=== PATIENT | male | born 1940 | race Hispanic/Latino ===

== ENCOUNTER 2018-08-04 10:17 | Inpatient (IN) | payer MEDICARE ==
[~2018-08-04] VITALS: Ht 175.3 cm; Wt 133.0 kg
[~2018-08-04 10:17] MED LIST: FORTAMET500 MG PO; GLIPIZIDE ER2.5 MG PO; GLIPIZIDE XL10 MG PO; SIMVASTATIN10 MG PO; SIMVASTATIN5 MG PO
--- OUTSIDE RECORDS SUMMARY | 2018-08-04 10:23 | XMS REPORT ---
Author Author [facility] Address Unknown Phone Unavailable Care Team Providers Care Operator Helper Name Role Phone BRIAN ZAVALETA Unavailable Unavailable Problems This patient has no known problems. Allergies, Adverse Reactions, Alerts This patient has no known allergies or adverse reactions. Medications This patient has no known medications. Results Test Description Test Time Test Comments Text Results Atomic Results Result Comments POCT-GLUCOSE METER 2017-02-07 07:27:00 POC-GLUCOSE METER (BEAKER) (test evcy=6777) 296 mg/dL 70-110 TESTED AT [facility] [address] [place] [id number] BASIC METABOLIC [id number] 06:01:00* Test Item Value Reference Range Comments SODIUM (BEAKER) (test bxqr=841) 133 meq/L 136-145 POTASSIUM (BEAKER) (test pqpi=012) 3.8 meq/L 3.5-5.1 CHLORIDE (BEAKER) (test dxct=826) 100 meq/L 98-107 CO2 (BEAKER) (test nzfr=916) 24 meq/L 22-29 BLOOD UREA NITROGEN (BEAKER) (test muno=801) 20 mg/dL 7-21 CREATININE (BEAKER) (test lblb=049) 0.86 mg/dL 0.57-1.25 GLUCOSE RANDOM (BEAKER) (test lkjc=229) 296 mg/dL 70-105 CALCIUM (BEAKER) (test jmpt=015) 8.8 mg/dL 8.4-10.2 EGFR (BEAKER) (test qsxd=4722) mL/min/1.73 sq m INSUFFICIENT CLINICAL DATA TO CALCULATE ESTIMATED GFR. CBC (HEMOGRAM ONLY)2017-02-07 05:22:00* Test Item Value Reference Range Comments WHITE BLOOD CELL COUNT (BEAKER) (test rfop=290) 12.3 K/ L 3.5-10.5 RED BLOOD CELL COUNT (BEAKER) (test rvsm=036) 4.73 M/ L 4.63-6.08 HEMOGLOBIN (BEAKER) (test nmtd=407) 11.3 GM/DL 13.7-17.5 HEMATOCRIT (BEAKER) (test ltrp=630) 36.9 % 40.1-51.0 MEAN CORPUSCULAR VOLUME (BEAKER) (test ahln=890) 78.0 fL 79.0-92.2 MEAN CORPUSCULAR HEMOGLOBIN (BEAKER) (test pyba=679) 23.9 pg 25.7-32.2 MEAN CORPUSCULAR HEMOGLOBIN CONC (BEAKER) (test umci=122) 30.6 GM/DL 32.3-36.5 RED CELL DISTRIBUTION WIDTH (BEAKER) (test slne=015) 15.9 % 11.6-14.4 PLATELET COUNT (BEAKER) (test kmzi=189) 290 K/CU MM 150-450 MEAN PLATELET VOLUME (BEAKER) (test slcv=883) 9.3 fL 9.4-12.4 NUCLEATED RED BLOOD CELLS (BEAKER) (test kffv=180) 0 /100 WBC 0-0 POCT-GLUCOSE [id number] 23:13:00* Test Item Value Reference Range Comments POC-GLUCOSE METER ([facility]) (test zfnk=9302) 273 mg/dL 70-110 TESTED AT [address] [address] [id number] 18:58:00* Test Item Value Reference Range Comments ACTIVATED CLOTTING TIME (AKER) (test mrdx=183) 378 sec TESTED AT [address] [address] POCT-GLUCOSE [id number] 16:55:00* Test Item Value Reference Range Comments POC-GLUCOSE METER ([facility]) (test spyv=8157) 236 mg/dL 70-110 TESTED AT [address] [address] [id number] 14:56:00* Test Item Value Reference Range Comments PARTIAL THROMBOPLASTIN TIME (AKER) (test xhoq=939) 52.5 seconds 22.5-36.0 HEMOGLOBIN [id number] 13:43:00* Test Item Value Reference Range Comments HEMOGLOBIN A1C (BEAKER) (test kwhl=928) 10.0 % 4.3-6.1 POCT-GLUCOSE [id number] 11:19:00* Test Item Value Reference Range Comments POC-GLUCOSE METER ([facility]) (test xlcj=8592) 350 mg/dL 70-110 TESTED AT [facility] [address] [facility] [address] HEMOGLOBIN [id number] 09:47:00* Test Item Value Reference Range Comments HEMOGLOBIN A1C (BEAKER) (test dmeo=851) 9.4 % 4.3-6.1 TROPONIN [id number] 08:05:00* Test Item Value Reference Range Comments TROPONIN I (BEAKER) (test vgff=179) 2.66 ng/mL 0.00-0.03 Troponin I (TnI) levels must be interpreted in the context of the presenting sym ptoms and the clinical findings. Elevated TnI levels indicate myocardial damage, but are not specific for ischemic heart disease. Elevated TnI levels are seen in patients with other cardiac conditions (including myocarditis and congestive h eart failure), and slight TnI elevations occur in patients with other conditions , including sepsis, renal failure, acidosis, acute neurological disease, and per sistent tachyarrhythmia.CREATINE KINASE (CK), TOTAL AND [id number] 07:54:00* Test Item Value Reference Range Comments CREATINE KINASE TOTAL (BEAKER) (test qese=839) 119 U/L 29-200 CREATINE KINASE-MB (BEAKER) (test pvxl=372) 1.4 ng/mL 0.0-6.6 CREATINE KINASE-MB INDEX (BEAKER) (test lcda=459) 1.2 % CK-MB Reference Range:<6.7 Normal6.7-10.0 Borderline>10.0 AbnormalAPTT 2017-02-06 07:39:00* Test Item Value Reference Range Comments PARTIAL THROMBOPLASTIN TIME (BEAKER) (test gmdh=977) 47.4 seconds 22.5-36.0 B-TYPE NATRIURETIC FACTOR (BNP)2017-02-06 07:29:00* Test Item Value Reference Range Comments B-TYPE NATRIURETIC PEPTIDE (BEAKER) (test wucx=492) 26 pg/mL 0-100 RAD, CHEST, 1 VIEW, NON [id number] 07:28:00Reason for exam:->chest painShould this be performed at the bedside?->YesFINAL REPORT Chest, one view. HISTORY: Chest pain COMPARISON: None. DISCUSSION: Lungs are clear without focal consolidation. Moderate central venous congestion. Cardiomediastinal silhouette is mildly enlarged. No acute osseous abnormality. No pleural effusion or pneumothorax. Visualized portions of the upper abdomen are unremarkable. IMPRESSION: Moderate central venous congestion and mild enlargement of the cardiomediastinal silhouette. Signed: Mack Pickardeport Verified Date/Time: 02/06/2017 07:28:42 Reading Location: [facility] Diagnostic Imaging Reading Room - [place] [id number] -GLUCOSE [id number] 06:28:00* Test Item Value Reference Range Comments POC-GLUCOSE METER (BEAKER) (test pqow=8974) 213 mg/dL 70-110 TESTED AT [address] [address] TSH/FREE T4 IF [id number] 03:06:00* Test Item Value Reference Range Comments THYROID STIMULATING HORMONE (BEAKER) (test zbdw=922) 2.47 uIU/mL 0.35-4.94 TROPONIN [id number] 02:34:00* Test Item Value Reference Range Comments TROPONIN I (BEAKER) (test tcvm=309) 2.83 ng/mL 0.00-0.03 Troponin I (TnI) levels must be interpreted in the context of the presenting sym ptoms and the clinical findings. Elevated TnI levels indicate myocardial damage, but are not specific for ischemic heart disease. Elevated TnI levels are seen in patients with other cardiac conditions (including myocarditis and congestive h eart failure), and slight TnI elevations occur in patients with other conditions , including sepsis, renal failure, acidosis, acute neurological disease, and per sistent tachyarrhythmia.CREATINE KINASE (CK), TOTAL AND [id number] 02:32:00* Test Item Value Reference Range Comments CREATINE KINASE TOTAL (BEAKER) (test bwab=255) 125 U/L 29-200 CREATINE KINASE-MB (BEAKER) (test drdc=961) 1.5 ng/mL 0.0-6.6 CREATINE KINASE-MB INDEX (BEAKER) (test wqdt=495) 1.2 % CK-MB Reference Range:<6.7 Normal6.7-10.0 Borderline>10.0 Abnormal COMPREHENSIVE METABOLIC [id number] 02:28:00* Test Item Value Reference Range Comments TOTAL PROTEIN (BEAKER) (test tzro=664) 7.2 gm/dL 6.0-8.3 ALBUMIN (BEAKER) (test mbuw=7055) 3.7 g/dL 3.5-5.0 ALKALINE PHOSPHATASE (BEAKER) (test acct=047) 95 U/L 40-150 BILIRUBIN TOTAL (BEAKER) (test eymq=920) 0.4 mg/dL 0.2-1.2 SODIUM (BEAKER) (test ofch=443) 137 meq/L 136-145 POTASSIUM (BEAKER) (test oqbl=332) 4.2 meq/L 3.5-5.1 CHLORIDE (BEAKER) (test kyre=370) 102 meq/L 98-107 CO2 (BEAKER) (test lroa=029) 22 meq/L 22-29 BLOOD UREA NITROGEN (BEAKER) (test tvsv=460) 21 mg/dL 7-21 CREATININE (BEAKER) (test rssr=110) 1.02 mg/dL 0.57-1.25 GLUCOSE RANDOM (BEAKER) (test sxql=130) 250 mg/dL 70-105 CALCIUM (BEAKER) (test fxgj=818) 9.2 mg/dL 8.4-10.2 AST (SGOT) (BEAKER) (test lrsr=979) 59 U/L 5-34 ALT (SGPT) (BEAKER) (test zzac=568) 47 U/L 6-55 EGFR (BEAKER) (test rqvg=3900) mL/min/1.73 sq m INSUFFICIENT CLINICAL DATA TO CALCULATE ESTIMATED GFR. [id number] 02:26:00* Test Item Value Reference Range Comments PHOSPHORUS (BEAKER) (test lpsh=124) 3.3 mg/dL 2.3-4.7 [id number] 02:26:00* Test Item Value Reference Range Comments MAGNESIUM (BEAKER) (test jojs=908) 1.6 mg/dL 1.6-2.6 LIPID [id number] 02:26:00* Test Item Value Reference Range Comments TRIGLYCERIDES (BEAKER) (test hnrp=277) 113 mg/dL CHOLESTEROL (BEAKER) (test zdkl=616) 114 mg/dL HDL CHOLESTEROL (BEAKER) (test eywf=037) 35 mg/dL LDL CHOLESTEROL CALCULATED (BEAKER) (test krru=619) 56 mg/dL Triglyceride Reference Range: Low Risk <150 Borderline 150-199 High Risk 200-499 Very High Risk >=500Cholesterol Reference Range: Low Risk <200 Borderline 200-239 High Risk >240HDL Cholesterol Reference Range: Low Risk >=60 High Risk <40LDL Cholesterol Reference Range: Optimal <100 Near Optimal 100-129 Borderline 130-159 High 160-189 Very High >=190 APTT 2017-02-06 01:49:00* Test Item Value Reference Range Comments PARTIAL THROMBOPLASTIN TIME (BEAKER) (test lfgb=074) 37.0 seconds 22.5-36.0 PROTHROMBIN TIME/[id number] 01:48:00* Test Item Value Reference Range Comments PROTIME (BEAKER) (test xnql=080) 15.3 seconds 11.7-14.7 INR (BEAKER) (test qjfb=853) 1.2 <=5.9 RECOMMENDED COUMADIN/WARFARIN INR THERAPY RANGESSTANDARD DOSE: 2.0 - 3.0 Inclu siobhan: PROPHYLAXIS for venous thrombosis, systemic embolization; TREATMENT for lilia ous thrombosis and/or pulmonary embolus.HIGH RISK: Target INR is 2.5-3.5 for pat ients with mechanical heart valves.CBC W/PLT COUNT & AUTO [id number] 01:34:00* Test Item Value Reference Range Comments WHITE BLOOD CELL COUNT (BEAKER) (test uwzn=779) 12.2 K/ L 3.5-10.5 RED BLOOD CELL COUNT (BEAKER) (test xmor=246) 4.92 M/ L 4.63-6.08 HEMOGLOBIN (BEAKER) (test ymeb=530) 12.0 GM/DL 13.7-17.5 HEMATOCRIT (BEAKER) (test qsoo=698) 38.6 % 40.1-51.0 MEAN CORPUSCULAR VOLUME (BEAKER) (test sdmc=218) 78.5 fL 79.0-92.2 MEAN CORPUSCULAR HEMOGLOBIN (BEAKER) (test cldz=229) 24.4 pg 25.7-32.2 MEAN CORPUSCULAR HEMOGLOBIN CONC (BEAKER) (test akks=713) 31.1 GM/DL 32.3-36.5 RED CELL DISTRIBUTION WIDTH (BEAKER) (test onwv=878) 16.7 % 11.6-14.4 PLATELET COUNT (BEAKER) (test tljn=449) 306 K/CU MM 150-450 MEAN PLATELET VOLUME (BEAKER) (test elpa=177) 9.0 fL 9.4-12.4 NUCLEATED RED BLOOD CELLS (BEAKER) (test ynnj=324) 0 /100 WBC 0-0 NEUTROPHILS RELATIVE PERCENT (BEAKER) (test rrgq=296) 63 % LYMPHOCYTES RELATIVE PERCENT (BEAKER) (test xtzj=330) 24 % MONOCYTES RELATIVE PERCENT (BEAKER) (test bxkk=168) 8 % EOSINOPHILS RELATIVE PERCENT (BEAKER) (test qqyh=666) 3 % BASOPHILS RELATIVE PERCENT (BEAKER) (test esst=056) 1 % NEUTROPHILS ABSOLUTE COUNT (BEAKER) (test xick=129) 7.61 K/ L 1.78-5.38 LYMPHOCYTES ABSOLUTE COUNT (BEAKER) (test qqwz=560) 2.97 K/ L 1.32-3.57 MONOCYTES ABSOLUTE COUNT (BEAKER) (test rglw=519) 1.02 K/ L 0.30-0.82 EOSINOPHILS ABSOLUTE COUNT (BEAKER) (test hhpe=741) 0.36 K/ L 0.04-0.54 BASOPHILS ABSOLUTE COUNT (BEAKER) (test tlok=527) 0.06 K/ L 0.01-0.08 IMMATURE GRANULOCYTES-RELATIVE PERCENT (BEAKER) (test irma=1469) 1 % 0-1
--- OUTSIDE RECORDS SUMMARY | 2018-08-04 10:23 | XMS REPORT | Clinical Summary ---
Author Author [facility] Address Unknown Phone Unavailable Care Team Providers Care Pleating Supervisor Name Role Phone Sharpless PCP Allergies No Known Allergies Medications End Date Status Medication Sig Dispensed Refills Start Date Active insulin aspart Inject 60 0 protamine-insulin aspart Units (NOVOLOG MIX 70/30) 100 subcutaneousl unit/mL (70-30) injection y every morning. Active insulin aspart Inject 30 0 protamine-insulin aspart Units (NOVOLOG MIX 70/30) 100 subcutaneousl unit/mL (70-30) injection y daily with dinner. Active metFORMIN (GLUCOPHAGE) Take 1,000 mg 0 500 MG tablet by mouth 2 (two) times daily with breakfast and dinner. Active glipiZIDE (GLUCOTROL) 10 Take 10 mg by 0 MG tablet mouth. Active furosemide (LASIX) 40 MG Take 40 mg by 0 tablet mouth daily. Active ticagrelor (BRILINTA) 90 Take 1 tablet 60 tablet 11 mg Tab tablet (90 mg total) 7 by mouth every 12 (twelve) hours. 02/07/2018 aspirin 81 MG EC tablet Take 1 tablet 360 tablet 0 (81 mg total) 7 by mouth daily. 02/07/2018 atorvastatin (LIPITOR) 80 Take 0.5 180 tablet 1 MG tablet tablets (40 7 mg total) by mouth nightly. 02/07/2018 losartan (COZAAR) 25 MG Take 1 tablet 30 tablet 11 tablet (25 mg total) 7 by mouth daily. 02/07/2018 metoprolol (LOPRESSOR) 25 Take 0.5 60 tablet 11 MG tablet tablets (12.5 7 mg total) by mouth 2 (two) times daily. Active Problems Problem Noted Date Non-ST elevated myocardial infarction 02/06/2017 Immunizations Name Dates Previously Given Next Due Pneumococcal 02/06/2017 Polysaccharide (Pneumovax) Family History Medical History Relation Name Comments Coronary artery disease Father Diabetes Father Coronary artery disease Mother Relation Name Status Comments Father Mother Social History Date Tobacco Use Types Packs/Day Years Used Quit: 1967 Former Smoker Cigarettes Smokeless Tobacco: Never Used Alcohol Use Drinks/Week oz/Week Comments No 1 drink per month Sex Assigned at Date Recorded Not on file Industry Job Start Date Occupation Not on file Not on file Not on file Travel End Travel History Travel Start No recent travel history available. Last Filed Vital Signs Not on file Plan of Treatment Not on file Implants Device Identifier Shelf Expiration Date Model / Serial / Lot Implanted Type Area Manufactur er [id number] 05/23/2017 [id number] / / [id number] Synergy Stents-Cor N/A: Coronary [place] Implanted: Qty: 1 on 02/06/2017 by Gisell Ocasio MD Results Not on fileafter 08/03/2017 Insurance Payer Benefit Subscriber ID Type Phone Address Plan / Group MEDICARE MEDICARE A xxxxxxxxxx Medicare B MCR SUPPLEMENT/INDIVIDUAL AARP/UNITE xxxxxxxxxxx Medigap D HEALTHCARE Advance Directives Patient has advance care planning documents, and code status on file. For more i nformation, please contact: [facility] [address] [place] [address] Date Inactivated Comments Code Status Date Activated 02/07/2017 4:07 PM Full Code 02/06/2017 1:00 AM This code status was determined by: Patient
--- NOTE | 2018-08-04 10:39 | NUR ---
Dr. Argueta seeing pt at this time.
[2018-08-04] MEDS ORDERED: ACETAMINOPHEN 325 MG TAB PO STA (10:40)
[2018-08-04 11:21] LABS: BASOPHILS % 0.2 % (0.0-1.0); EOSINOPHILS # (AUTO) 0.1 (0.0-0.4); EOSINOPHILS % 0.7 % (0.0-6.0); HEMATOCRIT 40.9 % (38.2-49.6); HEMOGLOBIN 12.1 g/dL (14.0-18.0); LYMPHOCYTES # (AUTO) 1.6 (1.0-3.2); LYMPHOCYTES % 9.4 % (18.0-39.1); MEAN CORPUSCULAR HEMOGLOBIN 21.5 pg (28-32); MEAN CORPUSCULAR HGB CONC 29.6 g/dL (31-35); MEAN CORPUSCULAR VOLUME 72.6 fL (81-99); MONOCYTES # (AUTO) 1.4 (0.2-0.8); MONOCYTES % 8.6 % (4.4-11.3); NEUTROPHILS # (AUTO) 13.3 (2.1-6.9); NEUTROPHILS % 79.8 % (38.7-80.0); PLATELET COUNT 494 x10e3/uL (140-360); RED BLOOD COUNT 5.63 x10e6/uL (4.3-5.7); RED CELL DISTRIBUTION WIDTH 20.2 % (11.7-14.4)
[2018-08-04 11:37] LABS: ALANINE AMINOTRANSFERASE 39 IU/L (0-55); ALBUMIN 2.7 g/dL (3.5-5.0); ALBUMIN/GLOBULIN RATIO 0.5 (0.8-2.0); ALKALINE PHOSPHATASE 95 IU/L (40-150); ANION GAP 16.1 mmol/L (8-16); BLOOD UREA NITROGEN 12 mg/dL (7-26); BUN/CREATININE RATIO 10 (6-25); CALCIUM 9.2 mg/dL (8.4-10.2); CARBON DIOXIDE 24 mmol/L (22-29); CHLORIDE 96 mmol/L (98-107); CREATININE, SERUM 1.15 mg/dL (0.72-1.25); EST GLOMERULAR FILTRATION RATE > 60 ML/MIN (60-); GLUCOSE 170 mg/dL (74-118); POTASSIUM 4.1 mmol/L (3.5-5.1); SODIUM 132 mmol/L (136-145)
[2018-08-04] MEDS ORDERED: SODIUM CHLORIDE 0.9% 1000ML 1,000 ML IV SCH (11:45)
--- NOTE | 2018-08-04 12:33 | Diagnostic Imaging Report ---
EXAM: CHEST 2 VIEWS, PA and lateral DATE: 08/04/2018 Time stamp on exam: 11:10 AM INDICATION: Possible pneumonia COMPARISON: None FINDINGS: LINES/TUBES: None LUNGS: Mild pulmonary vascular congestion. PLEURA: No effusions or pneumothorax. HEART AND MEDIASTINUM: Normal size and contour. BONES AND SOFT TISSUES: No acute findings. IMPRESSION: Mild pulmonary vascular congestion. Signed by: Dr. Tristin Younger DO on 08/04/2018 12:30 PM
[2018-08-04 13:39] LABS: CREATINE KINASE 102 IU/L (30-200)
[2018-08-04 13:58] LABS: CLARITY,URINE CLOUDY (CLEAR); COLOR,URINE STRAW (YELLOW); KETONES,URINE TRACE (NEGATIVE); LEUKOCYTE ESTERASE ,URINE TRACE (NEGATIVE); NITRITE,URINE NEGATIVE (NEGATIVE); PROTEIN,URINE DIPSTICK 1+ (NEGATIVE)
[2018-08-04 13:59] LABS: BILIRUBIN,URINE 2+ (NEGATIVE); URINE UROBILINOGEN 1 mg/dL (0.2 - 1)
[2018-08-04] MEDS ORDERED: AZITHROMYCIN 500MG/NS 250 ML 250 ML IV SCH (14:00)
[2018-08-04] MEDS ORDERED: CEFTRIAXONE SOD 1 GM/NS 50 ML 50 ML IV SCH (14:00)
[2018-08-04 14:09] LABS: AMORPHOUS SEDIMENT,URINE MANY (FEW); BACTERIA,URINE MANY /HPF
--- OUTSIDE RECORDS SUMMARY | 2018-08-04 15:19 | XMS REPORT | Clinical Summary ---
Author Author [facility] Address Unknown Phone Unavailable Care Team Providers Care Home Visits Nurse Name Role Phone Sharpless PCP Allergies No [...] / Lot Implanted Type Area Manufactur er [id number] 05/23/2017 [id number] / / [id number] Synergy Stents-Cor N/A: Coronary [place] Implanted: Qty: 1 on 02/06/2017 by Gisell Ocasio MD Results Not on fileafter 08/03/2017 Insurance Payer Benefit Subscriber ID Type Phone Address Plan / Group MEDICARE MEDICARE A xxxxxxxxxx Medicare B MCR SUPPLEMENT/INDIVIDUAL AARP/UNITE xxxxxxxxxxx Medigap D HEALTHCARE Advance Directives Patient has advance care planning documents, and code status on file. For more i nformation, please contact: [facility] [address] [place] [address] Date Inactivated Comments Code Status Date Activated 02/07/2017 4:07 PM Full Code 02/06/2017 1:00 AM This code status was determined by: Patient
[2018-08-04] MEDS ORDERED: ALBUTEROL SULF 0.083% NEB SOLN 3 ML NEB NEB SCH (15:20)
[2018-08-04] MEDS ORDERED: NON-FORMULARY MEDICATION (Glipizide (Glipizide Xl) 10 MG) PO SCH (15:30)
[2018-08-04] MEDS ORDERED: HYDROCORTISONE SOD SUCCINATE 100 MG VIAL IV ONE ×2 (15:45→18:00)
[2018-08-04 16:15] VITALS: BP 134/78
[2018-08-04 16:34] VITALS: BP 134/78
[2018-08-04] MEDS ORDERED: NOVOLOG MI100 UNIT/1 SQ ×2 (16:41→16:43)
--- NOTE | 2018-08-04 16:49 | Diagnostic Imaging Report ---
TECHNIQUE: CT scan of the chest WITHOUT intravenous contrast, using standard protocol. The chest was scanned utilizing a multidetector helical scanner from the apex to the level of the adrenal glands. 100 mL Isovue-370 IV contrast. Coronal and sagittal reformations were obtained. Total DLP: 625 mGy-cm COMPARISON: None INDICATION: Cough, congestion DISCUSSION: Lines/tubes: None. Lungs and Airways: Focal wedge-shaped area of tree-in-bud nodularity in the posterior, inferior right upper lobe with a similar abnormality in the posterior bilateral lower lobes. Minimal scattered areas of endobronchial contents of the lower lobes Multiple pulmonary micronodules measuring less than 7 mm scattered in the right upper and left lower lobes. Pleura: The pleural spaces are clear. Heart and mediastinum: The thyroid gland is normal. No significant mediastinal, hilar or axillary lymphadenopathy is seen. The heart and pericardium are within normal limits. Soft tissues: Normal. Abdomen: 17 mm left adrenal nodule measuring fluid density consistent with adenoma. The remainder of the upper abdominal contents are unremarkable. Bones: No acute bony abnormality. IMPRESSION: Minor patchy opacification and tree-in-bud abnormality in the posterior right upper and bilateral lower lobes may represent a developing infectious/inflammatory process, aspiration is a consideration. Follow-up is recommended after treatment to confirm resolution. Multiple pulmonary micronodules measuring up roughly 6 mm or less, these can be followed up as above. 17 mm left adrenal nodule measuring low density most consistent with an incidental adrenal adenoma adenoma. Signed by: Bo Gallegos MD on 08/04/2018 4:45 PM
--- NOTE | 2018-08-04 16:57 | History and Physical ---
CHIEF COMPLAINT: Congestion and cough. HISTORY OF PRESENT ILLNESS: The patient is a 78-year-old man. He has a history of coronary artery disease and a prior stent placement. He has a chronic cough. Over the past 1-2 weeks, he has had increased congestion and cough. He has noticed some dyspnea. He also had fever yesterday and today. He does not complain of any chest pain. He is not having any abdominal pain. He has no nausea or vomiting. PAST SURGICAL HISTORY: Status post coronary artery stent. PAST MEDICAL HISTORY: 1. Diabetes. 2. Hypercholesterolemia. 3. The patient denies any prior history of asthma or COPD. SOCIAL HISTORY: The patient was a smoker, but quit in 1967. He is not an active drinker. He lives at home with his who has also been sick. FAMILY HISTORY: Family history is noncontributory. ALLERGIES: THERE ARE NO KNOWN DRUG ALLERGIES. REVIEW OF SYSTEMS: The patient is febrile for the past 1-2 days. He has no headache. He has no sore throat. He is not complaining of any swollen glands. He has no chest pain. He does note some cough and congestion. He is not complaining of any chest pain. He has no nausea or vomiting. He has no abdominal pain. He does have some mild leg swelling. He has no focal neurological complaints. OBJECTIVE: VITAL SIGNS: The patient is afebrile now, but had a temperature of 100.8. The blood pressure is 118/76 and the saturation is 98%. HEENT: Shows no facial swelling or erythema. The nasal mucosa is normal. The oropharynx is normal. LYMPHATIC: Shows no submandibular, cervical or supraclavicular adenopathy. CARDIAC: Reveals a regular rate and rhythm with a normal S1 and S2. There are no murmurs or rubs. LUNGS: Auscultation of lungs reveals rhonchorous breath sounds bilaterally. There is no wheezing. ABDOMEN: Soft, nontender. There is no rebound or guarding. EXTREMITIES: Show no leg edema or calf tenderness. There is no cyanosis or clubbing. SKIN: Shows no rashes. NEUROLOGICAL: Shows no focal abnormalities. RADIOGRAPHIC DATA: Chest x-ray shows some mild venous congestion. LABORATORY DATA: The BUN to creatinine ratio is 12:1.15 and the lactic acid is 28.1. The white blood cell count is 16.6 and the hemoglobin is 12.1. The platelet count is 494. IMPRESSION: 1. Sepsis with unclear source. 2. Chronic bronchitis with acute exacerbation. 3. Diabetes mellitus. 4. Hypertension. PLAN: 1. The patient will receive IV antibiotics along with intravenous fluids. 2. CT scan of the chest. 3. Panculture patient and await for results. 4. Continue home diabetic regimen and home antihypertensive regimen. 5. Echocardiogram. Edgardo Rizo MD [facility]/MODL /[id number]
[2018-08-04 17:00] VITALS: BP 134/78
[2018-08-04] MEDS ORDERED: NON-FORMULARY MEDICATION (Insuln Asp Prt/Insulin Aspart (Novolog Mix 70-30 Flexpen Syrn) 3 SQ SCH (17:00)
[2018-08-04] MEDS ORDERED: GLIPIZIDE 5 MG TAB PO SCH (17:00)
[2018-08-04] MEDS: FLUTICASONE PROPIONATE NASAL SPRAY NS SCH (17:00)
[2018-08-04] MEDS ORDERED: INSULIN ASPART 70/30 100 UNITS/ML VIAL SC SCH (17:00)
[2018-08-04] MEDS: SODIUM CHLORIDE 0.9% 1000ML 1,000 ML IV SCH (17:13)
[2018-08-04 20:00] VITALS: BP 129/72
[2018-08-04] MEDS ORDERED: DEXTROSE 50% SYRINGE 50 ML IV PRN (20:30)
[2018-08-04 21:00] VITALS: BP 129/72
[2018-08-04] MEDS ORDERED: GLIPIZIDE 5 MG TAB ER PO SCH (21:00)
[2018-08-04] MEDS ORDERED: IOPAMIDOL 370 MG/ML 200 ML INFUS..BTL INJ ONE (22:26)
[2018-08-04] MEDS ORDERED: SODIUM CHLORIDE 0.9% 50ML 50 ML ONE (22:26)
[2018-08-04] MEDS: SIMVASTATIN 20 MG TAB PO SCH (22:37)
[2018-08-04] MEDS: INSULIN REGULAR, HUMAN 100 UNIT/1 ML 3ML VIAL SQ SCH (22:37)
[2018-08-05] VITALS (9 sets, daily range): BP systolic 132–158; BP diastolic 72–98
[2018-08-05] MEDS: ZOLPIDEM TARTRATE 5 MG TAB PO PRN ×2 (01:08→21:43)
[2018-08-05] MEDS: ALBUTEROL SULF 0.083% NEB SOLN 3 ML NEB NEB PRN ×2 (01:17→13:30)
[2018-08-05] MEDS: CEFTRIAXONE SOD 1 GM/NS 50 ML 50 ML IV SCH ×2 (01:29→15:24)
[2018-08-05] MEDS: SODIUM CHLORIDE 0.9% 1000ML 1,000 ML IV SCH (01:29)
[2018-08-05 05:00] LABS: BASOPHILS # (AUTO) 0.1 (0.0-0.1); BASOPHILS % 0.3 % (0.0-1.0); EOSINOPHILS # (AUTO) 0.1 (0.0-0.4); EOSINOPHILS % 0.7 % (0.0-6.0); HEMATOCRIT 34.1 % (38.2-49.6); HEMOGLOBIN 10.2 g/dL (14.0-18.0); LYMPHOCYTES # (AUTO) 2.2 (1.0-3.2); MEAN CORPUSCULAR HEMOGLOBIN 21.6 pg (28-32); MEAN CORPUSCULAR HGB CONC 29.9 g/dL (31-35); MEAN CORPUSCULAR VOLUME 72.2 fL (81-99); MONOCYTES # (AUTO) 1.5 (0.2-0.8); MONOCYTES % 9.8 % (4.4-11.3); NEUTROPHILS # (AUTO) 10.8 (2.1-6.9); NEUTROPHILS % 73.1 % (38.7-80.0); PLATELET COUNT 405 x10e3/uL (140-360); RED BLOOD COUNT 4.72 x10e6/uL (4.3-5.7); RED CELL DISTRIBUTION WIDTH 19.2 % (11.7-14.4)
[2018-08-05 05:27] LABS: ALANINE AMINOTRANSFERASE 29 IU/L (0-55); ALBUMIN 2.2 g/dL (3.5-5.0); ALBUMIN/GLOBULIN RATIO 0.4 (0.8-2.0); ALKALINE PHOSPHATASE 82 IU/L (40-150); ANION GAP 11.8 mmol/L (8-16); BLOOD UREA NITROGEN 9 mg/dL (7-26); BUN/CREATININE RATIO 11 (6-25); CALCIUM 8.6 mg/dL (8.4-10.2); CARBON DIOXIDE 23 mmol/L (22-29); CHLORIDE 103 mmol/L (98-107); EST GLOMERULAR FILTRATION RATE > 60 ML/MIN (60-); GLUCOSE 129 mg/dL (74-118); POTASSIUM 3.8 mmol/L (3.5-5.1); SODIUM 134 mmol/L (136-145)
--- NOTE | 2018-08-05 07:19 | NUR ---
Report given to AM nurse,walking round done.
[2018-08-05] MEDS: INSULIN REGULAR, HUMAN 100 UNIT/1 ML 3ML VIAL SQ SCH ×4 (07:30→21:42)
[2018-08-05] MEDS ORDERED: NON-FORMULARY MEDICATION (Insuln Asp Prt/Insulin Aspart (Novolog Mix 70-30 Flexpen Syrn) 6 SQ SCH (09:00)
[2018-08-05] MEDS ORDERED: GLIPIZIDE 5 MG TAB ER PO SCH (09:00)
[2018-08-05] MEDS: FLUTICASONE PROPIONATE NASAL SPRAY NS SCH ×2 (09:00→17:03)
[2018-08-05] MEDS ORDERED: INSULIN ASPART 70/30 100 UNITS/ML VIAL SC SCH ×3 (09:00)
[2018-08-05] MEDS: GLIPIZIDE 5 MG TAB PO SCH ×2 (09:43→17:03)
[2018-08-05] MEDS ORDERED: ACETAMINOPHEN 325 MG TAB PO PRN (09:45)
[2018-08-05] MEDS: ACETAMINOPHEN 325 MG TAB PO PRN (10:00)
--- NOTE | 2018-08-05 11:01 | Progress Note ---
DATE: Pulmonary Critical Care Progress Note SUBJECTIVE: The patient feels better. He has less congestion and less cough. OBJECTIVE: VITAL SIGNS: The blood pressure is 141/72 and saturation is 99%. The pulse is 84 and the respiratory rate is 21. HEENT: Shows no facial swelling or erythema. CARDIAC: Reveals a regular rate and rhythm with a normal S1 and S2. There are no murmurs or rubs. RESPIRATORY: Auscultation of lungs reveal rhonchorous breath sounds bilaterally. There is no wheezing. ABDOMEN: Soft and nontender. There is no rebound or guarding. EXTREMITIES: Show no leg edema or calf tenderness. LABORATORY DATA: The BUN to creatinine ratio is normal. The sodium is 134. The albumin is 2.2. White blood cell count is 14.8, hemoglobin is 10.2, and platelet count is 405. RADIOGRAPHIC DATA: CT scan of the chest shows patchy infiltrates in the right upper lobe and lower lobes bilaterally. IMPRESSION: 1. Community-acquired pneumonia with sepsis, present on admission. 2. Acute kidney injury. 3. Hyponatremia. 4. Diabetes mellitus. 5. Hypertension. PLAN: 1. The patient will continue to receive IV antibiotics. 2. Await final culture results. 3. Repeat CBC and chemistries in the morning. Edgardo Rizo MD [facility]/MODL /[id number]
[2018-08-05] MEDS: AZITHROMYCIN 500MG/NS 250 ML 250 ML IV SCH (13:34)
--- NOTE | 2018-08-05 16:41 | NUR ---
CASE MANAGEMENT INITIAL ASSESSMENT Wire Stitcher Operator to bedside to discuss plan of care with patient/family. CM/SW role and care transitions discussed. Anticipated discharge plan discussed along with duration of care. CM/SW discussed patients right to make decisions in care. CM/SW work hours given. Patient lives: Admit/Transfer: ER Hospital/ER visits since last admit:NONE POA/Emergency contact: BISHOP CRANE [phone] Current/Previous Home Health: NONE PCP/Follow-up Care: DR SHERIF YIN Current/Previous DME: GLUCOMETER; PT IS WORKING WITH PCP TO GET PAPERWORK COMPLETE FOR ELECTRIC SCOOOTER Medications (referring to index hospitalization or the first time you were in the hospital) a. Were changes made in your medications when you were in the hospital on [date of index hospitalization]? Yes No Not sure Explain: Note: If no or not sure, please skip to question d b. Did you understand the changes? Yes No Explain: c. Were you able to obtain your new medications right away? Yes No n/a SNF only Explain: d. Were you able to take your medications like the doctor wanted you to? TAKING MEDS AND INSULIN PER PCP DR YIN e. Did the hospital give you an accurate, easy to understand list of medications when you left? N/A Scale of 1-10 how comfortable does patient feel with disease management in outpatient settin Other Services: NONE Employment Status: RETIRED Areas of Concerns: GETTING SCOOTER BECAUSE HE TIRES QUICKLY WHILE WALKING Referral Needs: NONE Education Needs: REGARDING DC MEDS IMM/MENDEZ given and signed (if applicable): IMM ON ADMIT Goal for discharge:DC HOME WITH SOON POSSIBLE CM/SW left business card at the bedside with contact information. Name and number was also written on the patients whiteboard. Patient verbalized understanding of discussion. CM will follow-up with ongoing discharge and transition of care needs.
[2018-08-05] MEDS: INSULIN ASPART 70/30 100 UNITS/ML VIAL SC SCH (17:41)
[2018-08-05] MEDS: SIMVASTATIN 20 MG TAB PO SCH (21:42)
[2018-08-06] VITALS (8 sets, daily range): BP systolic 137–156; BP diastolic 71–86
[2018-08-06] MEDS: CEFTRIAXONE SOD 1 GM/NS 50 ML 50 ML IV SCH ×2 (02:07→14:00)
[2018-08-06 05:44] LABS: BASOPHILS # (AUTO) 0.1 (0.0-0.1); BASOPHILS % 0.4 % (0.0-1.0); EOSINOPHILS # (AUTO) 0.5 (0.0-0.4); EOSINOPHILS % 3.4 % (0.0-6.0); LYMPHOCYTES # (AUTO) 2.1 (1.0-3.2); LYMPHOCYTES % 15.6 % (18.0-39.1); MEAN CORPUSCULAR HEMOGLOBIN 21.5 pg (28-32); MEAN CORPUSCULAR HGB CONC 29.4 g/dL (31-35); MONOCYTES # (AUTO) 1.3 (0.2-0.8); MONOCYTES % 9.8 % (4.4-11.3); NEUTROPHILS # (AUTO) 9.2 (2.1-6.9); NEUTROPHILS % 69.7 % (38.7-80.0); PLATELET COUNT 438 x10e3/uL (140-360); RED BLOOD COUNT 4.66 x10e6/uL (4.3-5.7); RED CELL DISTRIBUTION WIDTH 19.5 % (11.7-14.4)
[2018-08-06 06:08] LABS: ALANINE AMINOTRANSFERASE 33 IU/L (0-55); ALBUMIN 2.3 g/dL (3.5-5.0); ALBUMIN/GLOBULIN RATIO 0.5 (0.8-2.0); ALKALINE PHOSPHATASE 91 IU/L (40-150); ANION GAP 10.9 mmol/L (8-16); BLOOD UREA NITROGEN 8 mg/dL (7-26); BUN/CREATININE RATIO 10 (6-25); CALCIUM 8.9 mg/dL (8.4-10.2); CARBON DIOXIDE 25 mmol/L (22-29); CHLORIDE 100 mmol/L (98-107); CREATININE, SERUM 0.81 mg/dL (0.72-1.25); EST GLOMERULAR FILTRATION RATE > 60 ML/MIN (60-); GLUCOSE 128 mg/dL (74-118); POTASSIUM 3.9 mmol/L (3.5-5.1); SODIUM 132 mmol/L (136-145)
--- NOTE | 2018-08-06 07:05 | NUR ---
Report given to oncoming nurse,walking round done.
--- NOTE | 2018-08-06 07:53 | NUR ---
MD Taylor JOHNSON INTO SEE PT, DISCUSSED POC
[2018-08-06] MEDS: ACETAMINOPHEN 325 MG TAB PO PRN (08:15)
[2018-08-06] MEDS ORDERED: CLONIDINE HCL 0.2 MG TAB PO PRN (08:15)
[2018-08-06] MEDS: GLIPIZIDE 5 MG TAB PO SCH ×2 (08:15→16:52)
[2018-08-06] MEDS: INSULIN ASPART 70/30 100 UNITS/ML VIAL SC SCH ×2 (08:30→16:52)
[2018-08-06] MEDS: INSULIN REGULAR, HUMAN 100 UNIT/1 ML 3ML VIAL SQ SCH ×4 (08:30→21:48)
[2018-08-06] MEDS: FLUTICASONE PROPIONATE NASAL SPRAY NS SCH ×3 (09:00→21:48)
--- NOTE | 2018-08-06 10:06 | NUR ---
PT RESTING WITH EYES CLOSED, RR NONLABORED, CALL LIGHT WITHIN REACH
--- NOTE | 2018-08-06 10:41 | Progress Note ---
DATE: 08/06/2018 Pulmonary Critical Care Progress Note SUBJECTIVE: The patient feels better, but still has some cough. He still has some congestion. OBJECTIVE: VITAL SIGNS: His T-max last night was 99.7. He remains on 4 L of oxygen, but is 100% saturated. HEENT: Shows no facial swelling or erythema. The oropharynx is normal. LYMPHATIC: Shows no submandibular, cervical, or supraclavicular adenopathy. CARDIAC: Reveals a regular rate and rhythm with a normal S1 and S2. There are no murmurs or rubs. LUNGS: Auscultation of lungs reveals clear breath sounds bilaterally. There is no wheezing. ABDOMEN: Soft and nontender. There is no rebound or guarding. EXTREMITIES: Show no leg edema or calf tenderness. LABORATORY DATA: White blood cell count is 13.2 and hemoglobin is 10. Sodium is 132. Blood sugars are 162 and 164. IMPRESSION: 1. Community-acquired pneumonia with sepsis present on admission. 2. Acute kidney injury. 3. Diabetes mellitus. 4. Hypertension. 5. Headache. PLAN: 1. Continue IV antibiotics. 2. Wean oxygen. 3. Continue to monitor blood sugars and adjust insulin. Edgardo Rizo MD [facility] /[id number]
--- NOTE | 2018-08-06 12:30 | NUR ---
PT EDUCATED ON NEED FOR SPUTUM SAMPLE, STATES "ALREADY GAVE ONE FEW DAYS AGO AND NOBODY PICKED IT UP", ASSURED PT THAT WHEN HE GIVES SAMPLE, NURSE WILL COLLECT IT FOR HIM, PT VERBALIZED UNDERSTANDING, CUP AT BEDSIDE
--- NOTE | 2018-08-06 13:50 | NUR ---
EDUCATED ABOUT IMM, SIGNED, FILED IN CHART, WITH COPY LEFT WITH FAMILY AT BEDSIDE.
[2018-08-06] MEDS: AZITHROMYCIN 500MG/NS 250 ML 250 ML IV SCH (14:30)
--- NOTE | 2018-08-06 15:00 | NUR ---
IV TO LEFT AC NOTED TO BE RED AND "SORE TO TOUCH", IV REMOVED, NEW 20G TO RFA BY CHARGE NURSE, PT TOLERATED WELL
--- NOTE | 2018-08-06 16:30 | NUR ---
WITH STANDBY ASSIST, PT OOB TO BR, SOME SHORTNESS OF BREATH UPON RETURNING TO BED, PT SATS 100%, NO DISTRESS NOTED, PT BETTER AFTER SITTING, CALL LIGHT WITHIN REACH
--- NOTE | 2018-08-06 18:32 | NUR ---
NO CHANGE IN CONDITION, CALL LIGHT WITHIN REACH
[2018-08-06] MEDS: GUAIFENESIN/CODEINE 10 ML CUP PO PRN (19:25)
--- NOTE | 2018-08-06 19:45 | NUR ---
NOTIFIED PATIENT AND THAT PATIENT WILL BE TRANSFERRED TO 205.
--- NOTE | 2018-08-06 20:40 | NUR ---
received patient from [facility]. Patient is AAOx3. Resp even and unlabored with O2 at 3L. No acute distress noted. Patient denies of any pain or discomfort at this time. Family at bed side. continue to monitor closely
[2018-08-06] MEDS: SIMVASTATIN 20 MG TAB PO SCH (21:48)
[2018-08-07] VITALS (8 sets, daily range): BP systolic 125–150; BP diastolic 66–75
[2018-08-07] MEDS: CEFTRIAXONE SOD 1 GM/NS 50 ML 50 ML IV SCH ×2 (02:30→13:58)
[2018-08-07] MEDS ORDERED: SODIUM CHLORIDE 0.9% 250ML 250 ML ONE (02:31)
[2018-08-07] MEDS: GUAIFENESIN/CODEINE 10 ML CUP PO PRN ×3 (05:53→21:10)
[2018-08-07] MEDS: GLIPIZIDE 5 MG TAB PO SCH ×2 (08:12→16:50)
[2018-08-07] MEDS: FLUTICASONE PROPIONATE NASAL SPRAY NS SCH ×2 (08:13→20:56)
[2018-08-07] MEDS: INSULIN ASPART 70/30 100 UNITS/ML VIAL SC SCH ×2 (08:14→16:52)
[2018-08-07] MEDS: INSULIN REGULAR, HUMAN 100 UNIT/1 ML 3ML VIAL SQ SCH ×4 (08:17→20:56)
--- NOTE | 2018-08-07 08:43 | NUR ---
The pt. returned from radiology to the unit post chest films. He denies pain or discomfort at this time and is resting quietly on the bedside.
--- NOTE | 2018-08-07 08:46 | Diagnostic Imaging Report ---
EXAMINATION: PA and lateral views of the chest. COMPARISON: CT chest 08/04/2018 CLINICAL HISTORY: Pneumonia DISCUSSION: The lungs are well-inflated. Patchy reticular and nodular opacities in the right upper and bilateral lower lobes seen to better advantage on comparison CT. No pleural effusion or pneumothorax. Tortuous thoracic aorta with atherosclerotic calcification. No overt pulmonary edema. No acute osseous abnormality. IMPRESSION: Patchy multifocal reticular and nodular opacities seen to better advantage on comparison CT 08/04/2018. No new consolidations. Signed by: Dr. Nathan Flower M.D. on 08/07/2018 8:42 AM
[2018-08-07 09:29] LABS: BASOPHILS # (AUTO) 0.1 (0.0-0.1); BASOPHILS % 0.4 % (0.0-1.0); EOSINOPHILS # (AUTO) 0.4 (0.0-0.4); EOSINOPHILS % 3.6 % (0.0-6.0); HEMATOCRIT 32.7 % (38.2-49.6); HEMOGLOBIN 9.7 g/dL (14.0-18.0); LYMPHOCYTES # (AUTO) 2.1 (1.0-3.2); LYMPHOCYTES % 17.8 % (18.0-39.1); MEAN CORPUSCULAR HEMOGLOBIN 21.7 pg (28-32); MEAN CORPUSCULAR HGB CONC 29.7 g/dL (31-35); MONOCYTES % 8.6 % (4.4-11.3); NEUTROPHILS # (AUTO) 8.2 (2.1-6.9); NEUTROPHILS % 68.3 % (38.7-80.0); PLATELET COUNT 422 x10e3/uL (140-360); RED BLOOD COUNT 4.48 x10e6/uL (4.3-5.7); RED CELL DISTRIBUTION WIDTH 19.2 % (11.7-14.4)
--- NOTE | 2018-08-07 09:35 | Progress Note ---
DATE: 08/07/2018 Pulmonary Critical Care Progress Note SUBJECTIVE: The patient is still requiring oxygen at 3 L. He has no fever. He has less congestion. He has less cough. PHYSICAL EXAMINATION: VITAL SIGNS: The blood pressure is 131/67 and the saturation is 97%. HEENT: Shows no facial swelling or erythema. The nasal mucosa is normal. The oropharynx is normal. LYMPHATIC: Shows no submandibular, cervical, or supraclavicular adenopathy. NECK: Shows no JVD or thyromegaly. There is no nuchal rigidity. CARDIAC: Reveals a regular rate and rhythm with a normal S1 and S2. There are no murmurs or rubs. LUNGS: Auscultation of lungs reveals clear breath sounds bilaterally. There is no wheezing. ABDOMEN: Soft nontender. IMPRESSION: 1. Community-acquired pneumonia with sepsis, present on admission. 2. Acute kidney injury. 3. Diabetes mellitus. 4. Hypertension. PLAN: 1. Wean oxygen. 2. Repeat PA and lateral chest x-ray. 3. Continue antibiotics. 4. Continue to monitor blood sugars and adjust insulin. Edgardo Rizo MD [facility] /[id number]
[2018-08-07 09:55] LABS: ALANINE AMINOTRANSFERASE 33 IU/L (0-55); ALBUMIN 2.1 g/dL (3.5-5.0); ALBUMIN/GLOBULIN RATIO 0.4 (0.8-2.0); ALKALINE PHOSPHATASE 87 IU/L (40-150); ANION GAP 9.9 mmol/L (8-16); BLOOD UREA NITROGEN 8 mg/dL (7-26); BUN/CREATININE RATIO 9 (6-25); CALCIUM 8.7 mg/dL (8.4-10.2); CARBON DIOXIDE 27 mmol/L (22-29); CHLORIDE 96 mmol/L (98-107); CREATININE, SERUM 0.88 mg/dL (0.72-1.25); EST GLOMERULAR FILTRATION RATE > 60 ML/MIN (60-); GLUCOSE 282 mg/dL (74-118); POTASSIUM 3.9 mmol/L (3.5-5.1); SODIUM 129 mmol/L (136-145)
[2018-08-07] MEDS: AZITHROMYCIN 500MG/NS 250 ML 250 ML IV SCH (13:58)
[2018-08-07] MEDS: SIMVASTATIN 20 MG TAB PO SCH (20:56)
[2018-08-08 00:26] VITALS: BP 150/74
[2018-08-08] MEDS: CEFTRIAXONE SOD 1 GM/NS 50 ML 50 ML IV SCH (02:24)
[2018-08-08 05:54] VITALS: BP 141/69
[2018-08-08 08:04] VITALS: BP 146/71
[2018-08-08 08:27] VITALS: BP 146/71
[2018-08-08] MEDS: GLIPIZIDE 5 MG TAB PO SCH (08:27)
[2018-08-08] MEDS: INSULIN ASPART 70/30 100 UNITS/ML VIAL SC SCH (08:27)
[2018-08-08] MEDS: INSULIN REGULAR, HUMAN 100 UNIT/1 ML 3ML VIAL SQ SCH (08:27)
[2018-08-08] MEDS: FLUTICASONE PROPIONATE NASAL SPRAY NS SCH (08:32)
--- NOTE | 2018-08-09 05:46 | Discharge Summary ---
DISCHARGE MEDICATIONS: 1. Glipizide 10 mg p.o. b.i.d. 2. NovoLog 70/30, 60 units q.a.m. and 30 units every evening. 3. Metformin 500 mg p.o. b.i.d. 4. Simvastatin 20 mg p.o. daily. 5. Levofloxacin 500 mg p.o. daily for 10 days. DISCHARGE DIAGNOSES: 1. Community-acquired pneumonia with sepsis present on admission. 2. Acute kidney injury. 3. Diabetes mellitus. 4. Hypertension. RADIOGRAPHIC STUDIES: CT scan of the chest shows a patchy opacification and tree-in-bud abnormality in the right upper lobe and the lower lobes bilaterally. There is also a 17 mm left adrenal nodule. HISTORY OF PRESENT ILLNESS: The patient is a 78-year-old man. He has a history of coronary artery disease and a prior stent placement. He came in complaining of cough for 1 to 2 weeks. He noticed increased congestion and cough as well as some dyspnea. He did not have any chest pain. He reported fever for two days prior to admission. HOSPITAL COURSE: The patient was admitted. He had an initial temperature of 100.8 with the pulse of 103. He was placed on oxygen and given some IV fluids. He was also started on antibiotics. He subsequently went for a CT scan that showed inflammatory changes consistent with pneumonia. The patient did continue to receive IV antibiotics. He felt much better. His oxygen was gradually weaned. His blood sugars were monitored closely and his insulin was adjusted accordingly. At the time of discharge, he felt better and was very eager to go home. DISPOSITION: The patient will be discharged home. He will follow up with Dr. Rizo for a repeat chest x-ray in several weeks. He will also follow up with Dr. Rangel for continued care of his diabetes and hypercholesterolemia. MD ALBIN[facility] Ravi/[facility] /[id number] cc: Ramiro Rangel
== END 2018-08-08 10:41 | disposition home or self-care (01) | DRG 871 ==
LOC: ER 10:17 → ERHOLD 15:16 → IMCU 16:29 → MED/SURG2 08-06 20:41
PROVIDERS: ADMIT Internal Medicine Critical Care Medicine; ATTEND Internal Medicine Critical Care Medicine
DX: A41.9 Sepsis, unspecified organism (principal); J18.9 Pneumonia, unspecified organism; N17.9 Acute kidney failure, unspecified; E87.1 Hypo-osmolality and hyponatremia; E11.9 Type 2 diabetes mellitus without complications; I10 Essential (primary) hypertension; E78.5 Hyperlipidemia, unspecified; J20.9 Acute bronchitis, unspecified; J42 Unspecified chronic bronchitis
CPT/HCPCS: 36415; 71046; 71260; 80053; 81001; 82550; 82553; 82948; 83605; 83880; 84484; 85025; 87040; 87070; 87086; 87205; 87400; 87449; 93005; 93306; 96372; 99285; J0456; J0696; J1720; J1815; J7030; J7050; Q9967

== ENCOUNTER 2021-02-15 09:35 | Emergency (ER) | payer MEDICARE ==
[~2021-02-15] VITALS: Ht 175.3 cm; Wt 135.6 kg
[~2021-02-15 09:35] MED LIST changes: +NOVOLOG MI100 UNIT/1 SQ
[2021-02-15] MEDS ORDERED: SODIUM CHLORIDE 0.9% 1000ML 1,000 ML IV STA (09:58)
[2021-02-15 10:16] LABS: BASOPHILS # (AUTO) 0.1 (0.0-0.1); BASOPHILS % 0.6 % (0.0-1.0); EOSINOPHILS # (AUTO) 0.3 (0.0-0.4); EOSINOPHILS % 2.9 % (0.0-6.0); HEMOGLOBIN 15.8 g/dL (14.0-18.0); LYMPHOCYTES # (AUTO) 3.9 (1.0-3.2); LYMPHOCYTES % 34.4 % (18.0-39.1); MEAN CORPUSCULAR HEMOGLOBIN 28.5 pg (28-32); MEAN CORPUSCULAR HGB CONC 32.2 g/dL (31-35); MEAN CORPUSCULAR VOLUME 88.3 fL (81-99); MONOCYTES # (AUTO) 0.9 (0.2-0.8); MONOCYTES % 8.2 % (4.4-11.3); NEUTROPHILS % 53.3 % (38.7-80.0); PLATELET COUNT 275 x10e3/uL (140-360); RED BLOOD COUNT 5.55 x10e6/uL (4.3-5.7); RED CELL DISTRIBUTION WIDTH 13.9 % (11.7-14.4)
[2021-02-15 10:33] LABS: ALBUMIN 3.7 g/dL (3.5-5.0); ALBUMIN/GLOBULIN RATIO 0.9 (0.8-2.0); ANION GAP 16.3 mmol/L (8-16); CALCIUM 9.5 mg/dL (8.4-10.2); CREATININE, SERUM 0.95 mg/dL (0.72-1.25); MAGNESIUM 1.6 MG/DL (1.3-2.1); POTASSIUM 4.3 mmol/L (3.5-5.1)
[2021-02-15 10:53] LABS: CREATINE KINASE MB 1.3 ng/mL (0-5.0); THYROID STIMULATING HORMONE 1.544 uIU/mL (0.350-4.940)
[2021-02-15 11:58] LABS: CLARITY,URINE CLEAR (CLEAR); COLOR,URINE YELLOW (YELLOW); KETONES,URINE TRACE (NEGATIVE); LEUKOCYTE ESTERASE ,URINE SMALL (NEGATIVE); NITRITE,URINE POSITIVE (NEGATIVE); PROTEIN,URINE DIPSTICK NEGATIVE (NEGATIVE); URINE UROBILINOGEN 0.2 mg/dL (0.2 - 1)
[2021-02-15 12:09] LABS: BACTERIA,URINE MANY /HPF; EPITHELIAL CELLS,URINE FEW /LPF; RBC,URINE 0-5 /HPF (0-5); WBC,URINE (MAN) 21-50 /HPF (0-5)
[2021-02-15] MEDS ORDERED: CEFTRIAXONE 1 GM in SODIUM CHLORIDE 0.9% 50ML 50 ML IV SCH (13:00)
== END 2021-02-15 14:40 | disposition home or self-care (01) ==
LOC: ER 09:45
DX: N39.0 Urinary tract infection, site not specified (principal); R00.0 Tachycardia, unspecified; E11.9 Type 2 diabetes mellitus without complications; I25.2 Old myocardial infarction; I25.10 Atherosclerotic heart disease of native coronary artery without angina pectoris; Z98.61 Coronary angioplasty status; Z20.822 Contact with and (suspected) exposure to COVID-19
CPT/HCPCS: 36415; 71045; 80053; 81001; 82550; 82553; 83735; 83880; 84443; 84484; 85025; 87086; 87186; 93005; 99284; J0696; J7030; U0002